=== PATIENT | female | born 1990 | race African-American/Black ===

== ENCOUNTER 2018-01-26 10:31 | Observation (INO) | payer MEDICAID ==
[~2018-01-26] VITALS: Ht 152.4 cm; Wt 54.9 kg
[2018-01-26] MEDS ORDERED: PNV1TABL76 MT (11:05)
== END 2018-01-26 11:30 | disposition home or self-care (01) ==
LOC: L&D 10:31
PROVIDERS: ADMIT Obstetrics & Gynecology; ATTEND Obstetrics & Gynecology
DX: O36.8120 Decreased fetal movements, second trimester, not applicable or unspecified (principal); Z3A.23 23 weeks gestation of pregnancy
CPT/HCPCS: 99281; G0378

== ENCOUNTER 2025-10-17 12:43 | Emergency (ER) | payer MEDICAID ==
[~2025-10-17] VITALS: Ht 165.1 cm; Wt 59.0 kg
[~2025-10-17 12:43] MED LIST: PNV1TABL76 MT
[2025-10-17 12:46] VITALS: BP 155/70; PULSE 78; RESP 18; TEMP 98.7; O2SAT 100
[2025-10-17] MEDS ORDERED: ALBU18HF2 IH (13:52)
== END 2025-10-17 14:21 | disposition home or self-care (01) ==
LOC: ER 12:43
DX: J45.901 Unspecified asthma with (acute) exacerbation (principal); Z88.8 Allergy status to other drugs, medicaments and biological substances
CPT/HCPCS: 99283

== ENCOUNTER 2025-10-21 22:18 | Emergency (ER) | payer MEDICAID ==
[~2025-10-21] VITALS: Ht 154.9 cm; Wt 50.0 kg
[~2025-10-21 22:18] MED LIST changes: +ALBU18HF2 IH
[2025-10-21 22:24] VITALS: O2SAT 100
[2025-10-21] MEDS ORDERED: P20 MT (22:50)
[2025-10-21] MEDS ORDERED: ALBU18HF2 IH (22:50)
[2025-10-21 22:58] VITALS: BP 141/84; PULSE 85; RESP 16; TEMP 36.6; O2SAT 100
== END 2025-10-21 23:02 | disposition home or self-care (01) ==
LOC: ER 22:18
DX: J45.901 Unspecified asthma with (acute) exacerbation (principal)
CPT/HCPCS: 99283